=== PATIENT | female | born 1975 | race Caucasian/White ===

== ENCOUNTER 2019-08-07 04:53 | Emergency (ER) | payer OTHER ==
[~2019-08-07] VITALS: Ht 162.6 cm; Wt 65.8 kg
[2019-08-07 04:55] VITALS: BP 145/87
--- NOTE | 2019-08-07 04:55 | NUR ---
to bed # 07 ambulatory
--- NOTE | 2019-08-07 04:55 | NUR ---
43 Y/O FEMALE BIB [facility] FOR [facility] FOR 3 DAYS. WHEEZING AND DIMINISHED BREATH SOUNDS NOTED THROUGHOUT. PATIENT SPEAKS IN SHORT SENTENCES. PER PATIENT'S , " SHE HAS BEEN SICK FOR 3 DAYS NOW, AND SHE COUGHS WITH GREEN PHLEGM AND HAS A RUNNY NOSE". ERMD MADE AWARE OF STATUS. SIDE RAILSX1. PLACED ON MONITOR. WILL CONTINUE TO MONITOR. PMH:ASTHMA; HTN RX:ALBUTEROL NKDA
--- NOTE | 2019-08-07 05:10 | NUR ---
ERMD AT BEDSIDE EVALUATING PATIENT.
[2019-08-07] MEDS ORDERED: ALBUTEROL SULFATE/IPRATROPIU 3 ML SOL IH ONE (05:15)
--- NOTE | 2019-08-07 05:23 | NUR ---
RT AT BEDSIDE.
[2019-08-07] MEDS ORDERED: predniSONE 20 MG TAB PO ONE (05:45)
[2019-08-07 06:08] VITALS: BP 138/83
--- NOTE | 2019-08-07 06:08 | NUR ---
Patient discharged with v/s stable. Written and verbal after care instructions given and explained. Patient alert, oriented and verbalized understanding of instructions. Ambulatory with steady gait. All questions addressed prior to discharge. ID band removed. Patient advised to follow up with PMD. Rx of albuterol; prednisone given. Patient educated on indication of medication including possible reaction and side effects. Opportunity to ask questions provided and answered.
== END 2019-08-07 06:08 | disposition home or self-care (01) ==
LOC: MED 04:53
DX: J45.901 Unspecified asthma with (acute) exacerbation (principal); I10 Essential (primary) hypertension
CPT/HCPCS: 71045; 94640; 99283; J7512; J7620; Q0092

== ENCOUNTER 2019-09-16 21:35 | Inpatient (IN) | payer OTHER ==
[~2019-09-16] VITALS: Ht 157.5 cm; Wt 63.5 kg
[2019-09-16 21:44] VITALS: BP 152/89
--- NOTE | 2019-09-16 21:44 | NUR ---
Pooja sanders in [facility] - 09/16/19 at 2145 by SUN PATIENT BROUGHT TO BED 5 VIA WHEELCHAIR.
--- NOTE | 2019-09-16 21:44 | NUR ---
PT TAKEN TO BED 5
[2019-09-16] MEDS ORDERED: ALBUTEROL 0.083% 2.5 MG/3 ML NEBU INH ONE ×2 (21:50→22:10)
[2019-09-16] MEDS ORDERED: DEXAMETHASONE 10 MG/ML VIAL IM ONE (21:50)
--- NOTE | 2019-09-16 21:54 | NUR ---
RT AT BEDSIDE. PATIENT ON BREATHING TREATMENT.
--- NOTE | 2019-09-16 21:55 | NUR ---
Pooja sanders in [facility] - 09/16/19 at 2155 by LENO Respiratory Therapist at bedside for respiratory intervention.
--- NOTE | 2019-09-16 22:06 | NUR ---
43 YO FEMALE CO SOB STARTING NOW. PT WAS BROUGHT IN VIA WC AND O2 WAS APPLIED AT 15L VIA MASK. RT WAS ORDERED AND AT BEDSIDE. PT HAS NO MED HX AND NO RX MEDS
[2019-09-16] MEDS ORDERED: EPINEPHrine 1:1000 - 1 MG/ML AMP SUBQ ONE (22:10)
[2019-09-16] MEDS ORDERED: methylPREDNISolone SS 125 MG in WATER STERILE 2 ML IV ONE (22:20)
[2019-09-16] MEDS ORDERED: MAG SULF 2000 MG/WATER PREMIX 50 ML IV ONE (22:20)
[2019-09-16] MEDS ORDERED: NACL 0.9% 1,000 ML IV ONE (22:20)
[2019-09-16] MEDS ORDERED: RACEPINEPHRINE 2.25% 13.5 MG/0.5 ML NEBU INH ONE (22:30)
[2019-09-16] MEDS ORDERED: WATER STERILE 10 ML MC ONE (22:37)
[2019-09-16] MEDS ORDERED: methylPREDNISolone SS 125 MG/2 ML VIAL ONE (22:37)
--- NOTE | 2019-09-16 22:40 | NUR ---
SUGGESTED CT SCAN OR 'X' RAY OF THE NECK TO THE DOCTOR DUE TO STRIDER HEARD AND PT STATING THROAT HURT. PHYSICIAN AGREED TO CT SCAN.
--- NOTE | 2019-09-16 23:00 | NUR ---
PATIENT COUGHING AND STATING THROAT PAIN. ERMD AWARE.
[2019-09-16] MEDS ORDERED: ACETAMINOPHEN/CODEINE 300/30MG 1 TAB PO ONE (23:15)
[2019-09-16] MEDS ORDERED: ALBUTEROL SULFATE/IPRATROPIU 3 ML SOL IH ONE (23:45)
--- NOTE | 2019-09-17 | NUR ---
PT LAYING IN BED RESTING AND COUGHING OFF AND ON. VITALS STABLE
--- NOTE | 2019-09-17 | NUR ---
PT LAYING IN BED RESTING AND COUGHING OFF AND ON. VITALS STABLE Addendum: 09/17/19 at 0138 by MEDGIN PT LAYING IN BED RESTING AND COUGHING OFF AND ON. VITALS STABLE. 09/03 PAIN IN THROAT. YAMILA MADE AWARE
[2019-09-17] MEDS ORDERED: DEXAMETHASONE 0.1% OP SCH (00:10)
[2019-09-17] MEDS ORDERED: RACEPINEPHRINE 2.25% 13.5 MG/0.5 ML NEBU INH ONE (00:10)
--- NOTE | 2019-09-17 00:53 | NUR ---
PT TAKEN TO CT
[2019-09-17] MEDS ORDERED: ACETAMINOPHEN 650 MG/20.3 ML UDC PO PRN (01:20)
[2019-09-17] MEDS ORDERED: ONDANSETRON 4 MG/2 ML VIAL IVP PRN (01:20)
--- NOTE | 2019-09-17 01:30 | NUR ---
Pooja sanders in [facility] - 09/17/19 at 0146 by MARLEE PT ON BED DELAY. DR MOURA DID NOT WANT TO TRANSFER PT UNTIL ANOTHER BREATHING TREATMENT WAS DONE.
--- NOTE | 2019-09-17 01:30 | NUR ---
PT ON BED DELAY. DR MOURA DID NOT WANT TO TRANSFER PT UNTIL ANOTHER BREATHING TREATMENT WAS DONE.
--- NOTE | 2019-09-17 01:30 | NUR ---
PT ON BED DELAY. DR MOURA DID NOT WANT TO TRANSFER PT UNTIL ANOTHER BREATHING TREATMENT WAS DONE.
--- NOTE | 2019-09-17 01:31 | NUR ---
PER PHARMACY, UNABLE TO ADMINISTER DECADRON MEDICATION VIA INHALATION ROUTE. PHYSICIAN NOTIFIED. SUGGESTED PULMICORT INHALATION TREATMENT IN LIEU OF DECADRON. PHYSICIAN AGREED. WILL COMPLETE THERAPY AT THIS TIME.
[2019-09-17] MEDS ORDERED: BUDESONIDE 0.5 MG/2 ML NEBU INH STA (01:34)
--- NOTE | 2019-09-17 01:36 | NUR ---
Pooja sanders in [facility] - 09/17/19 at 0146 by MARLEE resp therapy at bedside
--- NOTE | 2019-09-17 01:36 | NUR ---
RT AT BEDSIDE GIVEING TX
[2019-09-17] MEDS ORDERED: BUDESONIDE 0.5 MG/2 ML NEBU INH ONE (01:39)
[2019-09-17 02:00] VITALS: BP 118/82
--- NOTE | 2019-09-17 02:01 | NUR ---
Patient will be admitted to care of DR RICHMOND. Admited to [facility]. Will go to room 105A. Belongings list completed. Report to YESI HUGHES.
--- NOTE | 2019-09-17 02:15 | NUR ---
PT SIGNED AND LEFT AMA. PT AND SPOUSE WERE COMPLAINING THAT SHE WAS NOT GIVEN ANY PAIN MEDICATION OR ANTIBIOTICS FOR HER THROAT PAIN. I EXPLAINED TO THEM THAT I WILL CALL THE DOCTOR TO ASK FOR THE MEDICATION BUT SHE SAID SHE WANTED TO GO HOME. SHE CHANGED INTO HER HOME CLOTHES AND TOOK OFF HER TELE. ATTEMPTED TO CHANGE HER MIND TO STAY BUT HER MIND WAS MADE UP. IV D/C. WRIST BAND REMOVED.
[2019-09-17] MEDS ORDERED: methylPREDNISolone SS 125 MG/2 ML VIAL IVP SCH (06:00)
[2019-09-17] MEDS ORDERED: ALBUTEROL SULFATE/IPRATROPIU 3 ML SOL IH SCH (07:00)
[2019-09-17] MEDS ORDERED: BUDESONIDE 0.5 MG/2 ML NEBU INH SCH (07:30)
== END 2019-09-17 02:15 | disposition left against medical advice (07) | DRG 140 ==
LOC: MED 21:35 → MTU 09-17 00:24
PROVIDERS: ADMIT Hospitalist; ATTEND Hospitalist
DX: J44.1 Chronic obstructive pulmonary disease with (acute) exacerbation (principal); J96.01 Acute respiratory failure with hypoxia; E78.5 Hyperlipidemia, unspecified; I10 Essential (primary) hypertension; Z53.29 Procedure and treatment not carried out because of patient's decision for other reasons; Z79.899 Other long term (current) drug therapy
CPT/HCPCS: 36600; 70490; 82803; 94640; 96365; 96372; 96375; 99291; J0171; J1100; J2930; J3475; J7613; J7620; J7626

== ENCOUNTER 2022-06-16 01:00 | Emergency (ER) | payer OTHER ==
[~2022-06-16] VITALS: Ht 165.1 cm; Wt 68.0 kg
[2022-06-16 01:05] VITALS: BP 160/101
--- NOTE | 2022-06-16 01:05 | NUR ---
Patient taken to bed 4. STAT EKG at bedside.
--- NOTE | 2022-06-16 01:05 | NUR ---
PT A&O X4. C/O CHEST PAIN 05/03. NKA. MED HX OF SAY. DENIES SOB.
--- NOTE | 2022-06-16 02:02 | NUR ---
Dr. Moore examining patient.
--- NOTE | 2022-06-16 02:37 | NUR ---
X-Ray at bedside.
[2022-06-16 02:39] LABS: BARBITURATE, URINE NEGATIVE ng/ml (NEG <=200); BENZODIAZEPINE, URINE NEGATIVE ng/mL (NEG <=200); CANNABINOID, URINE NEGATIVE ng/mL (NEG <=50); COCAINE, URINE NEGATIVE ng/mL (NEG <=300); OPIATE, URINE NEGATIVE ng/mL (NEG <=2000); PHENCYCLIDINE SCREEN,URINE NEGATIVE ng/mL (NEG <=25)
[2022-06-16 02:59] VITALS: BP 155/100
--- NOTE | 2022-06-16 03:00 | NUR ---
Patient discharged with v/s stable. Written and verbal after care instructions given and explained. Patient verbalized understanding. Ambulatory with steady gait. All questions addressed prior to discharge. Advised to follow up with PMD.
== END 2022-06-16 03:00 | disposition home or self-care (01) ==
LOC: MED 01:00
DX: R07.89 Other chest pain (principal); J45.909 Unspecified asthma, uncomplicated; I10 Essential (primary) hypertension; Z98.890 Other specified postprocedural states
CPT/HCPCS: 71045; 80305; 93005; 99285; Q0092

== ENCOUNTER 2023-04-27 19:10 | Emergency (ER) | payer OTHER ==
[~2023-04-27] VITALS: Ht 162.6 cm; Wt 71.2 kg
[2023-04-27 19:20] VITALS: BP 139/97; PULSE 86; RESP 16; TEMP 98.2; O2SAT 98
== END 2023-04-27 19:43 | disposition left against medical advice (07) ==
LOC: MED 19:10
DX: R07.9 Chest pain, unspecified (principal); J45.909 Unspecified asthma, uncomplicated; I10 Essential (primary) hypertension; F17.200 Nicotine dependence, unspecified, uncomplicated
CPT/HCPCS: 93005; 99283

== ENCOUNTER 2023-05-14 05:23 | Emergency (ER) | payer OTHER ==
[~2023-05-14] VITALS: Ht 162.6 cm; Wt 72.6 kg
[2023-05-14 05:34] VITALS: BP 85/60; PULSE 111; RESP 30; TEMP 98.8; O2SAT 96
[2023-05-14 06:07] LABS: ANION GAP 12.3 (8-16); BASOPHILS % (AUTO) 0.2 % (0.0-2.0); CALCIUM 8.4 mg/dL (8.5-10.1); EOSINOPHILS # (AUTO) 0.2 K/uL (0-0.4); EOSINOPHILS % (AUTO) 0.8 % (0.0-4.0); HEMATOCRIT 30.9 % (36-48); HEMOGLOBIN 9.8 g/dL (12.0-16.0); LYMPHOCYTES # (AUTO) 1.6 K/uL (2.5-16.5); MEAN CORPUSCULAR HEMOGLOBIN 23 pg (27-31); MEAN CORPUSCULAR HGB CONC 32 g/dL (33-37); MONOCYTES # (AUTO) 0.7 K/uL (0.8-1.0); MONOCYTES % (AUTO) 3.2 % (1.7-9.3); PLATELET COUNT (AUTO) 324 K/uL (140-450); POTASSIUM 3.3 mmol/L (3.5-5.1); RED BLOOD CELL COUNT(AUTO) 4.28 MIL/uL (4.20-5.40); RED CELL DISTRIBUTION WIDTH 16.6 % (11.6-13.7); WHITE BLOOD COUNT (AUTO) 22.5 K/uL (4.8-10.8)
[2023-05-14 06:17] LABS: NEUTROPHILS % (AUTO) 88.8 % (42.2-75.2)
[2023-05-14] MEDS ORDERED: ALBUTEROL 0.083% 2.5 MG/3 ML NEBU INH ONE (07:05)
[2023-05-14] MEDS ORDERED: LEVOFLOXACIN 500 MG/D5W PREMIX 100 ML IV ONE (07:30)
[2023-05-14] MEDS ORDERED: predniSONE 20 MG TAB PO ONE (07:30)
[2023-05-14] MEDS ORDERED: KETOROLAC 30 MG/ML VIAL IVP ONE (07:30)
[2023-05-14 07:40] VITALS: O2SAT 98
[2023-05-14 07:46] VITALS: PULSE 91; RESP 24; O2SAT 97
[2023-05-14] MEDS ORDERED: levoFLOXacin 500 MG TAB PO ONE (07:55)
[2023-05-14] MEDS ORDERED: LEVO-481 PO (07:57)
[2023-05-14] MEDS ORDERED: PRED20TA5 PO (07:57)
[2023-05-14] MEDS ORDERED: ALBU0.0912 IH (07:59)
[2023-05-14 08:08] LABS: AMPHETAMINE, URINE POSITIVE ng/ml (NEG <=1000); BARBITURATE, URINE NEGATIVE ng/ml (NEG <=200); BENZODIAZEPINE, URINE NEGATIVE ng/mL (NEG <=200); CANNABINOID, URINE NEGATIVE ng/mL (NEG <=50); COCAINE, URINE NEGATIVE ng/mL (NEG <=300); OPIATE, URINE NEGATIVE ng/mL (NEG <=2000); PHENCYCLIDINE SCREEN,URINE NEGATIVE ng/mL (NEG <=25)
[2023-05-14 08:12] LABS: FLU A ANTIGEN negative (NEGATIVE); FLU B ANTIGEN NEGATIVE (NEGATIVE)
[2023-05-14 08:54] VITALS: BP 139/86; PULSE 108; RESP 30; TEMP 98.8; O2SAT 98
== END 2023-05-14 08:54 | disposition home or self-care (01) ==
LOC: MED 05:23
DX: J18.9 Pneumonia, unspecified organism (principal); Z20.822 Contact with and (suspected) exposure to COVID-19; J45.901 Unspecified asthma with (acute) exacerbation; Z79.899 Other long term (current) drug therapy
CPT/HCPCS: 36415; 71045; 80048; 80305; 81025; 83880; 84484; 85025; 87426; 87804; 93005; 94640; 96372; 99285; J1885; J7512; J7613; J1956

== ENCOUNTER 2023-07-21 00:49 | Emergency (ER) | payer OTHER ==
[~2023-07-21] VITALS: Ht 165.1 cm; Wt 104.3 kg
[~2023-07-21 00:49] MED LIST: ALBU0.0912 IH; LEVO-481 PO; PRED20TA5 PO
[2023-07-21 01:31] VITALS: BP 145/66; PULSE 87; RESP 18; TEMP 97.4; O2SAT 99
[2023-07-21 04:16] VITALS: BP 145/66; PULSE 87; RESP 18; TEMP 97.4; O2SAT 99
== END 2023-07-21 03:40 | disposition left against medical advice (07) ==
LOC: MED 00:49
DX: M79.644 Pain in right finger(s) (principal); Z53.21 Procedure and treatment not carried out due to patient leaving prior to being seen by health care provider
CPT/HCPCS: 99281